=== PATIENT | female | born 1975 | race African-American/Black ===

== ENCOUNTER 2021-02-02 16:08 | Emergency (ER) | payer BC ==
[~2021-02-02] VITALS: Ht 157.5 cm; Wt 74.8 kg
[~2021-02-02 16:08] MED LIST: AMOXICILLIN 50500 M1 PO; AMOXICILLIN875 MG PO; ATIVAN0.5 MG PO; BACTRIM DS TAB1 EACH PO; CITRATE OF MAG296 ML PO; DOXYCYCLINE 10100 M1 PO; DOXYCYCLINE 10100 MG PO; FLEXERIL PO; FLONASE16 GM SPRAY; HYDROCODONE-AP1 EAC6 PO; IBUPROFEN 600600 M1 PO; KEFLEX500 M1 PO; KEFLEX500 MG PO; METROGEL 1% KI1 EACH TP; METROGEL-VAGINA70 GM VG; NAPROSYN500 MG PO; NOHOMEMEDICATIONS; NORCO 5-325 TA1 EACH PO; PERCOCET 5-3251 EACH PO; PHENERGAN 25 MG25 M1 PO; PROMETHAZINE-C120 ML PO; ULTRAM 50MG TAB50 MG PO; VICODIN 5-5001 EACH PO
[2021-02-02] MEDS ORDERED: ZOLOFT25 MG PO (16:22)
[2021-02-02 16:39] LABS: ABSOLUTE NEUTROPHILS 4.1 thou/uL (1.4-8.2); BASOPHILS 0.2 % (0.0-2.0); EOSINOPHILS 3.3 % (0.0-3.0); LYMPHOCYTES 37.5 % (24.0-44.0); MCH 34.2 pg (26.0-34.0); MCHC 33.3 g/dL (28.0-37.0); MCV 102.6 fL (80.0-100.0); MONOCYTES 8.2 % (1.0-8.0); PLATELET COUNT 278 thou/uL (150-400); POLYS 50.8 % (36.0-66.0); WBC 8.2 thou/uL (4.0-11.0)
[2021-02-02 16:41] LABS: ANION GAP 16 mmol/L (7-16); BUN 14 mg/dL (7-18); CALCIUM 9.3 mg/dL (8.5-10.1); CHLORIDE 104 mmol/L (98-107); CO2 20 mmol/L (21-32); CREATININE 1.2 mg/dL (0.6-1.0); GLUCOSE 88 mg/dL (74-106); SODIUM 140 mmol/L (136-145)
[2021-02-02 16:51] LABS: ALBUMIN 4.4 g/dL (3.4-5.0); SGOT 22 U/L (15-37); SGPT 22 U/L (14-59); TOTAL BILIRUBIN 0.2 mg/dL (0.2-1.0); TOTAL PROTEIN 8.3 g/dL (6.4-8.2); TROPONIN-I <0.06 ng/mL (<0.06)
[2021-02-02 16:55] LABS: URINE BILIRUBIN NEGATIVE (Negative); URINE BLOOD NEGATIVE (Negative); URINE CLARITY CLEAR; URINE COLOR YELLOW; URINE GLUCOSE-RANDOM* NEGATIVE (Negative); URINE KETONES TRACE (Negative); URINE LEUKOCYTES-REFLEX NEGATIVE (Negative); URINE NITRITE-REFLEX NEGATIVE (Negative); URINE PROTEIN (DIPSTICK) TRACE (Negative); URINE SPECIFIC GRAVITY 1.025 (1.005-1.035); URINE UROBILINOGEN 0.2 E.U./dl (0.2-1.0)
[2021-02-02 17:05] LABS: AMP/METHAMP Negative (Negative); BARBITURATES Negative (Negative); BENZODIAZEPINES Negative (Negative); COCAINE POSITIVE (Negative); METHADONE Negative (Negative); OPIATES Negative (Negative); PCP Negative (Negative)
[2021-02-02 18:41] VITALS: BP 122/74
--- NOTE | 2021-02-03 11:38 | EKG ---
[address] [place] [address] ELECTROCARDIOGRAM REPORT Name: ADRIANA SKINNER [id number] Admission: 02/02/21 Attend Phys: Discharge: 02/02/21 Date of : 71 Report #: [id number] [facility] ED Test Date: 2021-02-02 Test Time: 16:15:46 Pat Name: ADRIANA SKINNER Department: Room: Gender: F Migrant Leader: ANAYELI : 1975 Requested By: Cristina Gilmore Order Number: [id number] MD: Felton Marrero Measurements Intervals [place] Rate: 86 P: 34 GA: 150 QRS: 82 QRSD: 84 T: 44 QT: 387 QTc: 463 Interpretive Statements Sinus rhythm Normal tracing Compared to ECG 05/15/2016 17:05:02 No significant changes Electronically Signed On 02-03-2021 11:38:45 CDT by Felton Marrero [email or web address] <ELECTRONICALLY SIGNED> By: Felton Marrero MD, [facility] 02/03/21 1138 1615 1615 Felton Marrero MD, FACC /EPI
== END 2021-02-02 18:43 | disposition home or self-care (01) ==
LOC: ER 16:08
PROVIDERS: Physician Assistant
DX: R55 Syncope and collapse (principal); E86.0 Dehydration; F15.10 Other stimulant abuse, uncomplicated; F17.210 Nicotine dependence, cigarettes, uncomplicated; Z88.2 Allergy status to sulfonamides